=== PATIENT | male | born 1960 | race Caucasian/White ===

== ENCOUNTER 2018-11-25 09:19 | Day surgery (SDC) | payer OTHER ==
[2018-11-25] MEDS ORDERED: MIDAZOLAM 2 MG/2 ML VIAL IVP ONE (09:20)
[2018-11-25] MEDS ORDERED: fentaNYL 250 MCG/5 ML VIAL IVP ONE (09:20)
[2018-11-25] MEDS ORDERED: LACTATED RINGERS 1,000 ML IV ONE (09:32)
[2018-11-25 11:53] VITALS: BP 114/88
== END 2018-11-25 09:20 | disposition home or self-care (01) ==
LOC: SDS 09:19
PROVIDERS: ATTEND Internal Medicine
PROC: 0DB68ZX Excision of Stomach, Via Natural or Artificial Opening Endoscopic, Diagnostic (ICD-10-PCS; 2018-11-25)
PROC: 0DB18ZX Excision of Upper Esophagus, Via Natural or Artificial Opening Endoscopic, Diagnostic (ICD-10-PCS; 2018-11-25)
PROC: 0DB38ZX Excision of Lower Esophagus, Via Natural or Artificial Opening Endoscopic, Diagnostic (ICD-10-PCS; principal; 2018-11-25 10:30)
DX: R13.14 Dysphagia, pharyngoesophageal phase (principal); Z87.19 Personal history of other diseases of the digestive system; K31.9 Disease of stomach and duodenum, unspecified
CPT/HCPCS: 43239; J7120